=== PATIENT | female | born 1985 | race African-American/Black ===

== ENCOUNTER 2017-02-27 22:05 | Emergency (ER) | payer MEDICAID ==
[~2017-02-27] VITALS: Ht 160 cm; Wt 82.3 kg
[~2017-02-27 22:05] MED LIST: NAPR500 PO
[2017-02-27 22:18] VITALS: BP 116/82; PULSE 84; RESP 16; TEMP 98.5; O2SAT 99
[2017-02-27] MEDS ORDERED: METR500T10 PO (22:38)
[2017-02-27 23:09] LABS: BLOOD, URINE NEG (NEG); GLUCOSE,URINE NEG (NEG); KETONE, URINE 15 mg/dL (NEG); NITRITE,URINE NEG (NEG); PH, URINE 5.5 (5.0-8.5)
[2017-02-27 23:17] LABS: URINE COLOR AMBER (YELLW/STRAW)
[2017-02-27 23:18] LABS: MUCUS URINE FEW /lpf (OCC)
[2017-02-27 23:21] LABS: BACTERIA, URINE OCC /hpf
[2017-02-27 23:22] LABS: COMMENT (UR) CULT NOT INDICATED; CULTURE IF INDICATED CULT NOT INDICATED; WBC, URINE 0-2 /hpf (0-5)
[2017-02-27] MEDS ORDERED: CYCL1TAB29 PO (23:54)
--- NOTE | 2017-02-27 23:55 | PD ---
HPI Chief Complaint: Flank/Kidney Pain Time Seen by Provider: 23:45 Travel History International Travel<30 days: No Contact w/Intl Traveler<30days: No Traveled to known affect area: No History of Present Illness HPI 31-year-old female presents emergency department for evaluation of left-sided flank pain. Patient states this is highly positional and hurs her when she lays on her left side. States feels better when she lays on her right. Also worse when twisting. Denies n/v/d, change in stool habits difficulty urinating , saddle anesthesia, fever, rash, vb/vd. States symptoms gradually worsening over the past few days. Sharp in nature. PFSH Past Medical History Diminished Hearing: No GERD: Yes Immunizations Current: Yes Influenza Vaccination: No ?: Not LMP: 01/28/17 : 2 Para: 1 Miscarriage: 1 Past Surgical History Section: Yes (x1) Other Surgery: Yes (pilonidal cyst x 2) Social History Alcohol Use: Yes (occas mix drinks) Tobacco Use: No Substance Use: No Allergies-Medications (Allergen,Severity, Reaction): Coded Allergies: No Known Allergies (Verified , 02/27/17) Reported Meds & Prescriptions Reported Meds & Active Scripts Active Flexeril (Cyclobenzaprine HCl) 10 Mg Tab 10 Mg PO TID PRN Reported Metronidazole 500 Mg Tab 1,000 Mg PO BID Review of Systems Except as stated in HPI: all other systems reviewed are Neg Physical Exam Narrative GENERAL: WD/WN laying on right side in nad. SKIN: Warm and dry. HEAD: Atraumatic. Normocephalic. EYES: Pupils equal and round. No scleral icterus. No injection or drainage. ENT: No nasal bleeding or discharge. Mucous membranes pink and moist. NECK: Trachea midline. No JVD. CARDIOVASCULAR: Regular rate and rhythm. RESPIRATORY: No accessory muscle use. Clear to auscultation. Breath sounds equal bilaterally. GASTROINTESTINAL: Abdomen soft, non-tender, nondistended. Hepatic and splenic margins not palpable. MUSCULOSKELETAL: Extremities without clubbing, cyanosis, or edema. No obvious deformities. Tenderness in the low back over the left SI joint. No cva tenderness. NO midline tenderness, no rash, no deformity. Tender with axial rotation. 5/5 strength in all four extremities. PMS intact. NEUROLOGICAL: Awake and alert. No obvious cranial nerve deficits. Motor grossly within normal limits. Five out of 5 muscle strength in the arms and legs. Normal speech. PSYCHIATRIC: Appropriate mood and affect; insight and judgment normal. Data Data Last Documented VS Orders Urinalysis - C+S If Indicated (02/27/17 22:44) Ed Urine Pregnancytest Poc (02/27/17 22:44) Labs MDM Medical Decision Making Medical Screen Exam Complete: Yes Emergency Medical Condition: Yes Differential Diagnosis Sacroilitis, low back pain, kidney stone unlikely, abdominal etiology unlikely. Narrative Course test negative. UA not infected. Patient appears well. Given history and physical exam, the etiology seems highly likely for musculoskeletal. Discussed with patient symptomatic management and return to ER criteria. Diagnosis Primary Impression: Low back pain Qualified Code: M54.5 - Acute left-sided low back pain without sciatica Additional Instructions: Follow-up the primary care [facility]. If you back pain persists for more than 6 weeks consider follow-up for x-rays. Med/Other Pt SpecificInfo: Prescription(s) given Scripts Cyclobenzaprine (Flexeril)10 Mg Tab10 Mg PO TID PRN (Muscle Spasm) #30 TAB Ref 0 Prov:Aric Sosa MD 02/27/17 Disposition: DISCHARGE HOME Condition: Stable Aric Sosa MD Feb 27, 2017 23:55 Primary Impression: Low back pain Qualified Code: M54.5 - Acute left-sided low back pain without sciatica Additional Instructions: Follow-up the primary care [facility]. If you back pain persists for more than 6 weeks consider follow-up for x-rays. Med/Other Pt SpecificInfo: Prescription(s) given Scripts Cyclobenzaprine (Flexeril)10 Mg Tab10 Mg PO TID PRN (Muscle Spasm) #30 TAB Ref 0 Prov:Aric Sosa MD 02/27/17 Disposition: DISCHARGE HOME Condition: Stable Aric Sosa MD Feb 27, 2017 23:55
== END 2017-02-28 00:04 | disposition home or self-care (01) ==
LOC: PHED 22:05
DX: M54.5 Low back pain (principal); K21.9 Gastro-esophageal reflux disease without esophagitis
CPT/HCPCS: 81001; 84703; 99284